=== PATIENT | female | born 1950 | race Caucasian/White ===

== ENCOUNTER → 2017-11-25 13:21 | Outpatient (CLI) | payer MEDICARE, BC, SELFPAY ==
--- NOTE | 2017-11-25 13:32 | XR_ITS ---
XR knee LT 3V HISTORY: ITS.REASON: ACUTE LT KNEE PAIN ORDERING PHYSICIAN: Jatin Ca MD PATIENT AGE: 67 years COMPARISON: None FINDINGS: Status post total knee replacement. No fracture or dislocation or other acute anomalies. There is good alignment of the prosthesis. IMPRESSION: Prior total knee replacement with no acute finding
== END ==
PROVIDERS: PCP Physician Assistant; Visit Provider Family Medicine
DX: M25.562 Pain in left knee (principal)
CPT/HCPCS: 73562

== ENCOUNTER → 2018-01-09 09:56 | Outpatient (CLI) | payer MEDICARE, BC, SELFPAY ==
--- NOTE | 2018-01-09 10:40 | MM_ITS ---
MM Dig screening mamm BI w/CAD CAD Screening COMPARISON: Digital mammograms 01/03/2017 INDICATION: There is no personal or family history of breast cancer. TECHNIQUE: Standard CC and MLO images were obtained. R2 CAD reviewed. FINDINGS: The breasts are closed primarily of fat with minimal scattered fiber glandular densities throughout each breast. There are 4 mole markers left breast . There is no suspicious lesion and no suspicious microcalcifications. IMPRESSION: Fibrofatty parenchyma with no suspicious lesion seen BI-RADS Category: 2 Benign Finding(s) RECOMMENDED FOLLOW-UP: 1YR - 1 YEAR FOLLOW-UP (A letter has been sent to the patient regarding results of the study.)
--- NOTE | 2018-01-09 10:41 | XR_ITS ---
XR DEXA axial skeleton HISTORY: ITS.REASON: POST MENOPAUSAL ORDERING PHYSICIAN: Julio Ca MD PATIENT AGE: 67 years COMPARISON: None FINDINGS: The BMD measured at the left femoral neck is 0.919 g/cm squared with a T score of -0.9. This is considered normal according to the World Health Organization criteria. Fracture risk is low. L1 L4 density has a T score of 1.5 which is normal. IMPRESSION: Normal bone density. Recommend follow-up exam December 2019
== END ==
PROVIDERS: PCP Physician Assistant; Visit Provider Family Medicine
DX: Z12.31 Encounter for screening mammogram for malignant neoplasm of breast (principal); Z78.0 Asymptomatic menopausal state
CPT/HCPCS: 77067; 77080

== ENCOUNTER → 2019-02-02 08:17 | Outpatient (CLI) | payer MEDICARE, BC, SELFPAY ==
--- NOTE | 2019-02-02 08:23 | US_ITS ---
US abdomen limited History:Elevated liver enzymes Ordering Physician:FREYA Nichole Patient Age: 68 years Comparison:None Findings: Pancreas:Unremarkable. No obvious mass or abnormal fluid collection. No ductal dilatation Liver:Fatty liver noted. No obvious mass or abnormal fluid collection. No ductal dilatation Right Kidney:Unremarkable. Normal size and echogenicity. No hydronephrosis Gallbladder:Prior cholecystectomy. The common bile duct is slightly prominent at 9 mm and could be related to the cholecystectomy change. Impression:Prior cholecystectomy, mild liver otherwise unremarkable right upper quadrant ultrasound
== END ==
PROVIDERS: PCP Physician Assistant; Visit Provider Physician Assistant
DX: R79.89 Other specified abnormal findings of blood chemistry (principal)
CPT/HCPCS: 76705

== ENCOUNTER → 2019-05-07 14:00 | Outpatient (CLI) | payer MEDICARE, BC, SELFPAY ==
[2019-05-07 14:03] LABS: Adenovirus F 40/41, stool Not Detected (NotDetected); Astrovirus Not Detected (NotDetected); Campylobacter Not Detected (NotDetected); Clostridium Difficile A/B, PCR Not Detected (NotDetected); Cryptosporidium Not Detected (NotDetected); Cyclospora Cayetanesis Not Detected (NotDetected); Entamoeba histolytica Not Detected (NotDetected); Enteroaggregative E coli Not Detected (NotDetected); Enteropathogenic E coli Not Detected (NotDetected); Enterotoxigenic E coli Not Detected (NotDetected); Giardia lamblia Not Detected (NotDetected); Norovirus Not Detected (NotDetected); Plesimonas Shigalloides, PCR Not Detected (NotDetected); Rotavirus A Not Detected (NotDetected); Salmonella, PCR Not Detected (NotDetected); Sapovirus Not Detected (NotDetected); Shiga-like toxin E coli Not Detected (NotDetected); Shigella Enterovasive E coli Not Detected (NotDetected); Vibrio Cholerae Not Detected (NotDetected); Vibrio, PCR Not Detected (NotDetected); Yersinia Entercolitica, PCR Not Detected (NotDetected)
== END ==
PROVIDERS: Visit Provider Physician Assistant
DX: R19.7 Diarrhea, unspecified (principal)
CPT/HCPCS: 87506

== ENCOUNTER → 2020-01-15 08:58 | Outpatient (CLI) | payer MEDICARE, BC, SELFPAY ==
--- NOTE | 2020-01-15 09:07 | MM_ITS ---
PROCEDURE: MM DIG SCREENING MAMM BI W/CAD BILATERAL DIGITAL BREAST TOMOSYNTHESIS INCLUDED the Patient Age:69Y CLINICAL INDICATION: SCREENING no hormones. No new complaints. Noncontributory family history The the COMPARISON: [facility] DIG MAMM-SCREEN JAS W/CAD from 01/03/2017 [facility] MM Dig screening mamm BI w/CAD from 01/09/2018 TECHNIQUE: Tomosynthesis as well as standard CC and MLO images were obtained. R2 CAD reviewed. Bilateral digital breast tomosynthesis included FINDINGS: Low-density breast with generalized fatty replacement. Minimal residual fibroglandular elements . Left breast: Again note very small grouping of tiny punctate calcifications at far upper-outer quadrant deep left breast, barely appreciable; and not detected with CAD. These tiny calcifications have been present and not changed appreciably since 2017 on either MLO or CC view. Can be followed safely at 1 year... Located far superior breast upper-outer quadrant. Right breast : Unremarkable no areas of significant concern on right; follow-up 1 year on right IMPRESSION: No new areas of concern either breast Bilateral follow-up in 1 year recommended, and be encouraged Stable appearing tiny punctate calcifications upper-outer quadrant left breast can be followed in 1 year BI-RAD Categoryry: 2 Benign Finding(s) FOLLOW-UP: 1YR 1 Year Follow-up Bilateral mammogram 1 year would be recommended and encouraged for ongoing evaluation (A letter has been sent to the patient regarding results of the study.) The the grouping Dictated by: Rocco Sanders MD 01/22/2020 10:41 Electronically signed by Rocco Sanders MD in [place] 01/22/2020 10:41
--- NOTE | 2020-01-15 09:09 | XR_ITS ---
PROCEDURE: XR DEXA AXIAL SKELETON CLINICAL HISTORY: POST MENOPAUSAL SCREENING COMPARISON: No exams were available for comparison FINDINGS: Right femoral neck density is 0.753 grams/centimeters sq with a T-score of -0 point. L1-L4 density has a T-score of 0.2 with a BMD of 1.073 grams/centimeters sq. Left femoral neck density is 0.721 grams/centimeter sq with a T-score of -1.2. IMPRESSION: Osteopenia with moderate fracture risk. Treatment advised. Suggest follow-up exam in 2 years Dictated by: Saqib Ponce MD 01/15/2020 11:47 Electronically signed by Saqib Ponce MD in [place] 01/15/2020 11:47
== END ==
PROVIDERS: PCP Physician Assistant; Visit Provider Physician Assistant
DX: Z12.31 Encounter for screening mammogram for malignant neoplasm of breast (principal); Z78.0 Asymptomatic menopausal state
CPT/HCPCS: 77063; 77067; 77080

== ENCOUNTER → 2020-04-24 10:44 | Outpatient (CLI) | payer MEDICARE, BC, SELFPAY ==
--- NOTE | 2020-04-24 10:56 | ECG_ITS ---
APPROVED REPORT Exam: Resting ECG HR:67 bpm ECG Measurements Heart Rate 67 AXES AK 142 P 73 QRSd 76 QRS 106 QT 448 T 81 QTc 473 <Conclusion> Normal sinus rhythm Rightward axis Pulmonary disease pattern Nonspecific ST and T wave abnormality Prolonged QT Abnormal ECG Electronically signed by : Juan Faustin, 04/25/2020 10:13:47
== END ==
PROVIDERS: PCP Physician Assistant; Visit Provider Physician Assistant
DX: Z01.818 Encounter for other preprocedural examination (principal)
CPT/HCPCS: 93005

== ENCOUNTER → 2020-04-25 16:10 | Outpatient (CLI) | payer MEDICARE, BC, SELFPAY ==
--- NOTE | 2020-04-25 16:16 | XR_ITS ---
PROCEDURE: XR CHEST 2V CLINICAL HISTORY: ABNORMAL EKG COMPARISON: No exams were available for comparison FINDINGS: The cardiomediastinal silhouette and pulmonary vascularity are within normal limits. The lungs are clear without infiltrates, suspicious nodules, or pleural effusions. No acute bony abnormalities. IMPRESSION: No acute findings. Dictated by: Saqib Ponce MD 04/25/2020 16:25 Electronically signed by Saqib Ponce MD in [place] 04/25/2020 16:25
== END ==
PROVIDERS: PCP Physician Assistant; Visit Provider Physician Assistant
DX: Z01.818 Encounter for other preprocedural examination (principal); R94.31 Abnormal electrocardiogram [ECG] [EKG]
CPT/HCPCS: 71046

== ENCOUNTER → 2021-08-21 10:36 | Outpatient (CLI) | payer MEDICARE, BC, SELFPAY | PROVIDERS: PCP Physician Assistant; Visit Provider Nurse Practitioner | DX: Z20.822 Contact with and (suspected) exposure to COVID-19 (principal) | CPT/HCPCS: C9803; U0003; U0005 ==

== ENCOUNTER → 2021-09-04 12:46 | Outpatient (CLI) | payer MEDICARE, BC, SELFPAY ==
--- NOTE | 2021-09-04 12:55 | MM_ITS ---
PROCEDURE INFORMATION: Exam: MG Bilateral Screening 3D Mammography Exam date and time: 09/04/2021 12:55 PM Age: 71 years old Clinical indication: Encounter for screening mammogram for malignant neoplasm of breast TECHNIQUE: Imaging protocol: Bilateral screening tomosynthesis and 2D mammography including computer-aided detection (CAD) when performed. COMPARISON: 1. MG MM DIG SCREENING MAMM BI W/CAD 01/15/2020 9:23 AM 2. MG [facility] MM Dig screening mamm BI w/CAD 01/09/2018 10:51 AM FINDINGS: MAMMOGRAPHY: Breast composition: The breast tissue is composed of scattered areas of fibroglandular density. Mass: None. Architectural distortion: None. Calcifications: No suspicious calcifications. Asymmetric density: None. Skin thickening: None. Axillary adenopathy: None. IMPRESSION: No mammographic evidence of malignancy. Annual screening is recommended unless otherwise clinically indicated. ASSESSMENT: BI-RADS Category 1: Negative
== END ==
PROVIDERS: PCP Physician Assistant; Visit Provider Physician Assistant
DX: Z12.31 Encounter for screening mammogram for malignant neoplasm of breast (principal)
CPT/HCPCS: 77063; 77067

== ENCOUNTER → 2023-11-02 10:49 | Outpatient (CLI) | payer MEDICARE, BC, SELFPAY ==
--- NOTE | 2023-11-02 10:55 | XR_ITS ---
FINAL REPORT TECHNIQUE: Chest PA & Lateral CLINICAL HISTORY: Shortness of breath COMPARISON: 04/25/2020 FINDINGS: 2 views of the chest were performed. The heart size is normal. The mediastinum is within normal limits. There is no acute cardiopulmonary process. There are no pleural effusions. There is no pneumothorax. The bony thorax appears intact. IMPRESSION: No acute cardiopulmonary process. Reviewed, Interpreted and Dictated by Yong Shaver MD Transcribed by Lilia Freeman Authenticated and [facility]
== END ==
PROVIDERS: PCP Physician Assistant; Visit Provider Physician Assistant
DX: R06.02 Shortness of breath (principal)
CPT/HCPCS: 71046

== ENCOUNTER 2023-11-18 11:48 | Emergency (ER) | payer MEDICARE, BC, SELFPAY ==
[2023-11-18 12:05] VITALS: BP 144/86; PULSE 90; RESP 21; TEMP 36.6; O2SAT 96; BMI 27.4
--- NOTE | 2023-11-18 12:08 | XR_ITS ---
FINAL REPORT TECHNIQUE: Chest PA & Lateral CLINICAL HISTORY: Nonspecific cough COMPARISON: 11/02/2023 FINDINGS: 2 views of the chest were performed. The heart size is normal. The mediastinum is within normal limits. Chronic changes are noted at the lung bases. There is no acute cardiopulmonary process. There are no pleural effusions. There is no pneumothorax. The bony thorax appears intact. IMPRESSION: Chronic changes without acute cardiopulmonary process. Reviewed, Interpreted and Dictated by Yong Shaver MD Transcribed by Lilia Freeman Authenticated and [facility]
--- NOTE | 2023-11-18 12:19 | ED_ITS ---
Discharge Plan Disposition Patient Disposition: Home, Self-Care Condition: Good Prescriptions Prescriptions: New benzonatate [benzonatate] 100 mg capsule 100 mg PO TIDP PRN (Reason: Cough) Qty: 30 0RF cefdinir 300 mg capsule 300 mg PO BID Qty: 20 0RF methylprednisolone 4 mg Tablets,Dose Pack 4 mg PO DIRECTED 6 Days Qty: 21 0RF Rx Instructions: Take 1 pack as directed for 6 days No Action cetirizine 10 mg tablet 10 mg PO DAILY Patient Comments: TAKE 1 TABLET BY MOUTH ONCE A DAY levothyroxine 100 mcg tablet 100 mcg PO DAILY Patient Comments: TAKE 1 TABLET BY MOUTH EVERY DAY citalopram 20 mg tablet 20 mg PO DAILY Patient Comments: TAKE 1 TABLET BY MOUTH EVERY DAY ropinirole 0.25 mg tablet 0.25 mg PO HS Patient Comments: TAKE 1 TABLET BY MOUTH AT BEDTIME omeprazole 20 mg capsule,delayed release(DR/EC) 20 mg PO DAILY Patient Comments: TAKE 1 CAPSULE BY MOUTH EVERY DAY montelukast 10 mg tablet 10 mg PO DAILY Patient Comments: TAKE 1 TABLET BY MOUTH EVERY DAY cholecalciferol (vitamin D3) 125 mcg (5,000 unit) capsule 125 mcg PO DAILY Patient Comments: TAKE 1 CAPSULE BY MOUTH ONCE DAILY rosuvastatin 20 mg tablet 20 mg PO DAILY Patient Comments: TAKE 1 TABLET BY MOUTH AT BEDTIME metoprolol tartrate 25 mg tablet 25 mg PO DAILY Patient Comments: TAKE 1 TABLET BY MOUTH TWICE DAILY Trulicity 0.75 mg/0.5 mL pen injector 0.75 mg SQ WEEKLY Patient Comments: USE DIRECTED TO INJECT 0.75MG SUBCUTANEOUSLY ONCE WEEKLY Synjardy XR 12.5-1,000 mg tablet, IR - ER, biphasic 24hr 2 tab PO DAILY Patient Comments: TAKE 2 TABLETS BY MOUTH EVERY DAY Referrals Follow up/Referrals: Masha Avilez PA [Primary Care Provider] - See instructions Activity Restrictions/Add. Instructions Additional Instructions/Restrictions: Drink plenty of fluids. Take tylenol or ibuprofen for pain or fever. Take the medications as directed. Follow up with your regular doctor. GO TO THE ER FOR ANY WORSENING SYMPTOMS Clinical Impressions Clinical Impression: Acute bronchitis, Left wrist sprain Instructions Patient Instructions: DI for Wrist Sprain, DI for Acute Bronchitis Discharge ED Provider: Paz Whelan [facility] General Stated complaint: cough, chills knee pain Time Seen by Provider: 11/18/23 12:19 History of Present Illness Provider Complaint: She states that for the past 1 week she has had worsening chest and sinus congestion. She had covid-19 about 3 weeks ago. She states that she seemed to get better from covid-19, but then she started having congestion. Also, she states that she fell at home about 1 week ago. She came down on her left wrist and left hand. Since then she has had left wrist and knee pain. Her knee pain is worse when she walks or bears weight on it. Related Data Home Medications Medication Instructions Recorded Confirmed cetirizine 10 mg tablet 10 mg PO DAILY 11/18/23 11/18/23 cholecalciferol (vitamin D3) 125 125 mcg PO DAILY 11/18/23 11/18/23 mcg (5,000 unit) capsule citalopram 20 mg tablet 20 mg PO DAILY 11/18/23 11/18/23 dulaglutide 0.75 mg/0.5 mL 0.75 mg SQ WEEKLY 11/18/23 11/18/23 subcutaneous pen injector (Trulicity) empagliflozin 12.5 mg-metformin ER 2 tab PO DAILY 11/18/23 11/18/23 1,000 mg tablet,extended rel 24 hr (Synjardy XR) levothyroxine 100 mcg tablet 100 mcg PO DAILY 11/18/23 11/18/23 metoprolol tartrate 25 mg tablet 25 mg PO DAILY 11/18/23 11/18/23 montelukast 10 mg tablet 10 mg PO DAILY 11/18/23 11/18/23 omeprazole 20 mg capsule,delayed 20 mg PO DAILY 11/18/23 11/18/23 release ropinirole 0.25 mg tablet 0.25 mg PO HS 11/18/23 11/18/23 rosuvastatin 20 mg tablet 20 mg PO DAILY 11/18/23 11/18/23 Previous Rx's Medication Instructions Recorded benzonatate 100 mg capsule 100 mg PO TIDP PRN Cough #30 caps 11/18/23 cefdinir 300 mg capsule 300 mg PO BID #20 caps 11/18/23 methylprednisolone 4 mg tablets in 4 mg PO DIRECTED 6 days #21 tabs 11/18/23 a dose pack Allergies Allergy/AdvReac Type Severity Reaction Status Date / Time No Known Allergies Allergy Unverified 01/29/19 15:29 [facility] Disclaimer: The information contained in this section may have been updated after the patient was seen, as this information can be updated by other users. Medical History (Updated 11/18/23 @ 13:47 by Dc Whelan APRN) Anxiety Asthma Depression Diabetes mellitus, type 2 History of gastroesophageal reflux (GERD) Hyperlipidemia Surgical History (Updated 11/18/23 @ 12:25 by Becky Feng RN) History of cardiac catheterization History of cholecystectomy History of tonsillectomy Social History Smoking Status: Current every day smoker alcohol intake: never current occupational status: employed Travel in the last 8 weeks: None ROS Obtained: Yes All systems reviewed & no additional complaints except as documented Constitutional Constitutional: Denies chills and Denies fever(s) Eyes Eyes: Denies eye discharge ENT Ears, Nose, Mouth, and Throat: Denies dizziness, Denies otalgia, Reports nasal congestion, Reports sinus pressure and Denies sore throat Cardiovascular Cardiovascular: Denies chest pain Respiratory Respiratory: Denies shortness of breath, Reports chest congestion, Reports cough, Denies stridor and Denies wheezing Gastrointestinal Gastrointestingal: Denies nausea or vomiting Musculoskeletal Musculoskeletal: Reports as per HPI Integumentary/Breasts Skin/Breast: Denies rash Neurologic Neurologic: Denies dizziness and Denies paresthesias Allergic/Immunologic Allergic/Immunologic: Denies wheezing Physical Exam General General appearance: alert and in no apparent distress Head Head exam: atraumatic, normocephalic and normal inspection Eye Eye exam: Present normal appearance, PERRL and EOMI ENT ENT exam: Present normal exam, normal oropharynx, mucous membranes moist, TM's normal bilaterally and normal external ear exam Neck Neck exam: Present normal inspection, full ROM and trachea midline; Absent meningismus or lymphadenopathy Chest Chest inspection: Present normal inspection and symmetric chest wall rise; Absent tenderness Respiratory Respiratory exam: Present normal lung sounds bilaterally; Absent respiratory distress Cardiovascular Cardiovascular exam: Present regular rate and normal rhythm; Absent JVD Abdominal Exam Abdominal exam: Present soft and normal bowel sounds; Absent distention, tenderness or guarding Extremities Exam Extremities exam: Present normal capillary refill; Absent calf tenderness Expanded Upper Extremity Exam Left: Elbow exam: Present normal inspection and full ROM; Absent tenderness, pain w/ pronation/supination or tenderness over radial head Forearm/Wrist exam: Present full ROM and tenderness; Absent swelling, abrasion, laceration, ecchymosis, deformity, crepitus, dislocation, erythema, tenderness over anatomical snuff box or pain with axial thumb loading Hand exam: Present normal inspection and full ROM; Absent tenderness Neuromotor exam: Normal wrist extension, thumb opposition, thumb IP flexion, thumb adduction and fingers 2-5 abduction Neurosensory exam: Normal radial nerve and ulnar nerve Vascular exam: Normal capillary refill, radial pulse and ulnar pulse Expanded Lower Extremity Exam Left: Hip/Pelvis exam: Present normal inspection and full ROM; Absent tenderness Upper leg exam: Present normal inspection and full ROM; Absent tenderness Knee exam: Present full ROM and tenderness; Absent swelling, abrasion, laceration, ecchymosis, deformity, crepitus, dislocation, erythema, effusion, anterior drawer sign, posterior draw sign, pain with valgus, laxity with valgus, pain with varus, laxity with varus or knee extension intact Lower leg exam: Present normal inspection and full ROM; Absent tenderness Ankle exam: Present normal inspection and full ROM; Absent tenderness Foot/toe exam: Present normal inspection and full ROM; Absent tenderness Neurovascular/Tendon exam: Present normal capillary refill; Absent pulse deficit, motor deficit, sensory deficit, tendon deficit or extremity cold to touch Gait: observed and normal Back Exam Back exam: Present normal inspection; Absent tenderness Neurological Exam Neurological exam: Present alert and oriented X3 Psychiatric Psychiatric exam: Present normal affect and normal mood Skin Skin exam: Present warm, dry, intact and normal color Lymphatic Lymphatic Findings: no adenopathy Medical Decision Making Medical Records Medical records reviewed: No I reviewed the patient's medical records. Sim Inquiry Pt receiving controlled substance: No Orders (Tests/Meds): ORDERS Category Date Time Status Chest XR 2 view (NOT portable) [XR chest 2V] Stat Exams 11/18/23 12:08 Ordered Radiology Data #1: Image(s): Wrist Image Reviewed: Yes I reviewed the patient's radiology image and Yes I have reviewed radiologist's interpretation Preliminary Findings: No Fracture Seen FINAL REPORT CLINICAL HISTORY: fall, left wrist pain COMPARISON: None FINDINGS: LEFT WRIST Three views demonstrate no acute fracture or dislocation. The visualized joint spaces are normally aligned. The soft tissues are unremarkable. IMPRESSION: No acute bony abnormality. Reviewed, Interpreted and Dictated by Yong Shaver MD Transcribed by Lilia Freeman Authenticated and [facility] #2: Image(s): Knee Image Reviewed: Yes I reviewed the patient's radiology image and Yes I have reviewed radiologist's interpretation Preliminary Findings: No Fracture Seen FINAL REPORT CLINICAL HISTORY: fall, left knee pain COMPARISON: None FINDINGS: LEFT KNEE 3 views of the left knee were obtained. Total joint prosthesis is noted. There is no acute fracture. Visualized joint spaces are normally aligned. Soft tissues are unremarkable.
--- NOTE | 2023-11-18 12:33 | XR_ITS ---
FINAL REPORT CLINICAL HISTORY: fall, left knee pain COMPARISON: None FINDINGS: LEFT KNEE 3 views of the left knee were obtained. Total joint prosthesis is noted. There is no acute fracture. Visualized joint spaces are normally aligned. Soft tissues are unremarkable. IMPRESSION: No acute bony abnormality. Reviewed, Interpreted and Dictated by Yong Shaver MD Transcribed by Lilia Freeman Authenticated and . [facility]
--- NOTE | 2023-11-18 12:33 | XR_ITS ---
FINAL REPORT CLINICAL HISTORY: fall, left wrist pain COMPARISON: None FINDINGS: LEFT WRIST Three views demonstrate no acute fracture or dislocation. The visualized joint spaces are normally aligned. The soft tissues are unremarkable. IMPRESSION: No acute bony abnormality. Reviewed, Interpreted and Dictated by Yong Shaver MD Transcribed by Lilia Freeman Authenticated and [facility]
[2023-11-18 13:41] VITALS: BP 144/86; PULSE 90; RESP 21; TEMP 36.6; O2SAT 96
== END 2023-11-18 13:54 | disposition home or self-care (01) ==
PROVIDERS: Emergency Provider Physician Assistant Surgical; PCP Physician Assistant
DX: J20.9 Acute bronchitis, unspecified (principal); S63.502A Unspecified sprain of left wrist, initial encounter; M25.562 Pain in left knee; R09.81 Nasal congestion; R05.9 Cough, unspecified; R09.89 Other specified symptoms and signs involving the circulatory and respiratory systems; F17.210 Nicotine dependence, cigarettes, uncomplicated; J45.909 Unspecified asthma, uncomplicated; E78.5 Hyperlipidemia, unspecified; K21.9 Gastro-esophageal reflux disease without esophagitis; E11.9 Type 2 diabetes mellitus without complications; Z79.84 Long term (current) use of oral hypoglycemic drugs; Z79.85 Long-term (current) use of injectable non-insulin antidiabetic drugs; W19.XXXA Unspecified fall, initial encounter
CPT/HCPCS: 71046; 73110; 73562; 99204; 99212; G0463